=== PATIENT | female | born 1965 | race Caucasian/White ===

== ENCOUNTER 2018-09-06 10:42 | Emergency (ER) | payer OTHER ==
[2018-09-06 10:58] VITALS: BP 110/68; PULSE 86; TEMP 98.2; BMI 24.7
--- NOTE | 2018-09-06 12:25 | PDOC ---
Documentation entered by Ava Castro SCRIBE, acting as scribe for Bharath Marley MD. Bharath Marley MD: This documentation has been prepared by the Matthew chen Nirvannie, SCRIBE, under my direction and personally reviewed by me in its entirety. I confirm that the documentation accurately reflects all work, treatment, procedures, and medical decision making performed by me. History of Present Illness - General Chief Complaint: Vaginal Bleeding Stated Complaint: VAGINAL BLEEDING Time Seen by Provider: 09/06/18 11:27 History Source: Patient Exam Limitations: No Limitations - History of Present Illness Initial Comments: 09/06/18 12:20 The patient is a 52 year old female, with a significant past medical history of uterine fibroids and anxiety, who presents to the emergency department with, 1 day of vaginal bleeding and mild suprapubic discomfort. Patient describes her vaginal bleeding as scant and has only used 1 pad today. Patients LMP was 2 years ago and has not experienced any post-menopausal bleeding until today. She denies any abnormal vaginal discharge. She denies any rectal bleeding. She denies recent fevers, chills, headache or dizziness. She denies recent nausea, vomit, diarrhea or constipation. She denies recent dysuria, frequency, urgency or hematuria. She denies recent chest pain or shortness of breath. Allergies: NKDA Past History - Past Medical History Allergies/Adverse Reactions: Allergies Allergy/AdvReac Type Severity Reaction Status Date / Time No Known Allergies Allergy Verified 09/06/18 10:55 COPD: No - Immunization History Immunization Up to Date: Yes - Suicide/Smoking/Psychosocial Hx Smoking History: Never smoked Hx Alcohol Use: No Drug/Substance Use Hx: No Review of Systems - Review of Systems Able to Perform ROS?: Yes Comments:: 09/06/18 12:20 "GENERAL/CONSTITUTIONAL: No fever or chills. No weakness. HEAD, EYES, EARS, NOSE AND THROAT: No change in vision. No ear pain or discharge. No sore throat. CARDIOVASCULAR: No chest pain, no shortness of breath, no loss of consciousness RESPIRATORY: No cough, wheezing, or hemoptysis. GASTROINTESTINAL: No nausea, vomiting, diarrhea or constipation. GENITOURINARY: +Vaginal bleeding. No dysuria, frequency, or change in urination. MUSCULOSKELETAL: No joint or muscle swelling or pain. No neck or back pain. SKIN: No rash NEUROLOGIC: No vertigo, no change in strength/sensation. ENDOCRINE: No increased thirst. No abnormal weight change. HEMATOLOGIC/LYMPHATIC: No anemia, easy bleeding, or history of blood clots. ALLERGIC/IMMUNOLOGIC: No hives or skin allergy. All Other Systems: Reviewed and Negative *Physical Exam - Vital Signs Last Vital Signs Temp Pulse Resp BP Pulse Ox 98.2 F 86 16 110/68 99 09/06/18 10:55 09/06/18 10:55 09/06/18 10:55 09/06/18 10:55 09/06/18 10:55 - Physical Exam Comments: 09/06/18 12:10 GENERAL: Awake, alert, and fully oriented, in no acute distress. HEAD: No signs of trauma EYES: PERRLA, EOMI, sclera anicteric, conjunctiva clear ENT: Auricles normal inspection, hearing grossly normal, nares patent, oropharynx clear without exudates. Moist mucosa NECK: Nontender, no stepoffs, Normal ROM, supple, no lymphadenopathy, JVD, or masses LUNGS: Breath sounds equal, clear to auscultation bilaterally. No wheezes, and no crackles HEART: Regular rate and rhythm, normal S1 and S2, no murmurs, rubs or gallops ABDOMEN: Soft, nontender, normoactive bowel sounds. No guarding, no rebound. No masses EXTREMITIES: Normal range of motion, no edema. No clubbing or cyanosis. No cords, erythema, or tenderness NEUROLOGICAL: Cranial nerves II through XII intact. 5/5 strength and sensation in all extremities, Normal speech, normal gait, normal cerebellar function SKIN: Warm, Dry, normal turgor, no rashes or lesions noted. : scant blood in vault, no CMT, no cervical masses visualized, no adnexal masses or tenderness ED Treatment Course - LABORATORY CBC & Chemistry Diagram: 09/06/18 12:05 09/06/18 12:05 - RADIOLOGY Radiology Studies Ordered: Category Date Time Status TRANSVAGINAL ULTRASOUND US [US] Stat Ultrasound 09/06/18 11:54 Ordered Medical Decision Making - Medical Decision Making 09/06/18 12:08 52 F with abnormal vaginal bleeding. Benign exam in ED. Suspect fibroids vs malignancy. Pt with no symptoms of anemia. - Labs - UA - TVUS 09/06/18 13:53 Labs wnl UA with + RBCs, no infection TVUS shows enlarged fibroid uterus, likely cause of pt's bleeding Pt is well appearing, with normal vitals. Clinically stable for DC at this time. I discussed the physical exam findings, ancillary test results and final diagnoses with the patient. I answered all of the patient's questions. The patient was satisfied with the care received and felt comfortable with the discharge plan and treatment plan. The patient agrees to follow up with the primary care physician within 24-72 hours. *DC/Admit/Observation/Transfer Diagnosis at time of Disposition: Fibroid, Vaginal bleeding, Postmenopausal bleeding - Discharge Dispostion Disposition: HOME - Referrals - Patient Instructions Printed Discharge Instructions: DI for Vaginal Bleeding, DI for Uterine Fibroids Additional Instructions: Your ultrasound showed fibroids in your uterus. This is likely the cause of your bleeding. However, you must follow up with your cyber incident handler, as we cannot rule out malignancy. You may need further studies or a biopsy. If you experience worsening bleeding, pain, or any other concerning symptoms, return to the ER immediately. Otherwise, follow up with your cyber incident handler within 1 week. Call the number provided if you do not have one. Magallanes sonograma mostr fibromas en magallanes tero. Esta es probablemente la causa de magallanes sangrado. Sin embargo, debe hacer koby eneida con magallanes obstetra / gineclogo, ya que no podemos descartar koby enfermedad maligna. Es posible que necesite ms estudios o koby biopsia. Si tiene un empeoramiento del sangrado, dolor o cualquier otro sntoma preocupante, regrese a la christiane de emergencias inmediatamente. De lo contrario, maren un seguimiento con magallanes obstetra / gineclogo dentro de koby semana. Llame al nmero provisto si no tiene nick. - Post Discharge Activity - Attestations Physician Attestion: 09/06/18 13:57 I, Dr. Bharath Marley MD, attest that this document has been prepared under my direction and personally reviewed by me in its entirety. I further attest, that it accurately reflects all work, treatment, procedures and medical decision -making performed by me.
[2018-09-06 12:36] LABS: BASO % 0.7 % (0-2.0); EOS % 0.3 % (0-4.5); HEMATOCRIT 39.5 % (32.4-45.2); HEMOGLOBIN 13.1 GM/dL (10.7-15.3); LYMPH % 25.4 % (8-40); MCH 29.5 pg (25.7-33.7); MCHC 33.2 g/dl (32.0-36.0); MEAN PLT VOLUME 9.7 fl (7.5-11.1); MONO % 3.9 % (3.8-10.2); NEUT % 69.7 % (42.8-82.8); PLATELET COUNT 195 K/MM3 (134-434); RBC 4.44 M/mm3 (3.60-5.2); RDW 14.3 % (11.6-15.6); WHITE BLOOD COUNT 8.6 K/mm3 (4.0-10.0)
[2018-09-06 12:51] LABS: HCG,QUALITATIVE URINE Negative
[2018-09-06 12:55] LABS: EPI CELLS 4.7 /HPF (0-5/HPF); PH,URINE >= 9.0 (5.0-8.0); URINE APPEARANCE TURBID; URINE BACTERIA 8.5 /hpf (NEGATIVE); URINE BILIRUBIN NEGATIVE (NEGATIVE); URINE CASTS 1 /lpf (0-8); URINE COLOR DK YELLOW; URINE GLUCOSE (UA) NEGATIVE (NEGATIVE); URINE KETONE NEGATIVE (NEGATIVE); URINE LEUK ESTERASE NEGATIVE (NEGATIVE); URINE NITRITE NEGATIVE (NEGATIVE); URINE PROTEIN TRACE (NEGATIVE); URINE RBC 605 /hpf (0-4); URINE UROBILINOGEN 0.2 mg/dL (0.2-1.0); URINE WBC 2 /hpf (0-5)
[2018-09-06 13:02] LABS: ALBUMIN 4.2 g/dl (3.4-5.0); BILIRUBIN,TOTAL 0.7 mg/dL (0.2-1); CALCIUM 9.3 mg/dL (8.5-10.1); CREATININE 0.5 mg/dL (0.55-1.3); POTASSIUM 3.7 mmol/L (3.5-5.1); TOT PROT 8.2 g/dl (6.4-8.2)
== END 2018-09-06 14:05 | disposition home or self-care (01) ==
LOC: JER 10:42
DX: N95.0 Postmenopausal bleeding (principal); D25.9 Leiomyoma of uterus, unspecified
CPT/HCPCS: 36415; 76830-TC; 80053; 81003; 84703; 85025; 99282-25

== ENCOUNTER 2018-09-19 12:43 | Emergency (ER) | payer OTHER | END 2018-09-19 14:29 | disposition home or self-care (01) | LOC: JERFT 12:43 ==

== ENCOUNTER 2019-04-07 14:01 | Emergency (ER) | payer OTHER ==
[2019-04-07 14:11] VITALS: BP 141/86; PULSE 99; TEMP 98.2; BMI 28.3
--- NOTE | 2019-04-07 14:54 | PDOC ---
History of Present Illness - General Chief Complaint: Back Pain Stated Complaint: BACK PAIN Time Seen by Provider: 04/07/19 14:04 - History of Present Illness Initial Comments: 04/07/19 14:52 53-year-old female with a past medical history of asthma presents for evaluation of right-sided back pain x1 day she is had a cough for 2 weeks no systemic symptoms Past History - Past Medical History Allergies/Adverse Reactions: Allergies Allergy/AdvReac Type Severity Reaction Status Date / Time No Known Allergies Allergy Verified 09/19/18 12:46 Home Medications: Ambulatory Orders Nitrofurantoin Monohyd/M-Cryst [Macrobid -] 100 mg PO BID #14 capsule 09/19/18 Cyclobenzaprine HCl [Flexeril 10 mg] 10 mg PO HS PRN #10 tablet 04/07/19 Ibuprofen [Motrin -] 600 mg PO TID #30 tablet 04/07/19 COPD: No - Immunization History Immunization Up to Date: Yes - Psycho Social/Smoking Cessation Hx Smoking History: Never smoked Hx Alcohol Use: No Drug/Substance Use Hx: No Review of Systems - Review of Systems Musculoskeletal: Yes: Back Pain *Physical Exam - Vital Signs Last Vital Signs Temp Pulse Resp BP Pulse Ox 98.2 F 99 H 20 141/86 100 04/07/19 14:05 04/07/19 14:05 04/07/19 14:05 04/07/19 14:05 04/07/19 14:05 - Physical Exam 04/07/19 14:52 GENERAL: The patient is awake, alert, and fully oriented, in no acute distress. HEAD: Normal with no signs of trauma. EYES: sclera anicteric, conjunctiva clear. ENT: Ears normal tympanic membranes normal oropharynx clear uvula midline NECK: Normal range of motion LUNGS: Breath sounds equal, clear to auscultation bilaterally. No wheezes, and no crackles. Mild right-sided parathoracic musculature spasm and tenderness HEART: S1 and S2 without murmur, rub or gallop. ABDOMEN: Soft, nontender, normoactive bowel sounds. No guarding, no rebound. No masses. EXTREMITIES: Normal range of motion, no edema. No clubbing or cyanosis. No cords, erythema, or tenderness. NEUROLOGICAL: Cranial nerves II through XII grossly intact. Normal speech, normal gait. PSYCH: Normal mood, normal affect. SKIN: Warm, Dry, normal turgor, no rashes or lesions noted. ED Treatment Course - RADIOLOGY Radiology Studies Ordered: Category Date Time Status CHEST PA & LAT [RAD] Stat Radiology 04/07/19 14:38 Taken Medical Decision Making - Medical Decision Making 04/07/19 14:53 Thoracic strain Flexeril Motrin follow-up with primary care physician Discharge - Discharge Information Problems reviewed: Yes Clinical Impression/Diagnosis: Strain of fascia at thorax level Condition: Stable Disposition: HOME - Admission No - Follow up/Referral Referrals: Roxann Urbano [Primary Care Provider] - - Patient Discharge Instructions Additional Instructions: Please take the Motrin and Flexeril as directed. Return to the emergency room for worsening symptoms. Without fail follow-up with your primary care physician in 2 to 3 days for further evaluation and treatment options. - Post Discharge Activity
== END 2019-04-07 15:20 | disposition home or self-care (01) ==
LOC: JERFT 14:01
DX: S29.012A Strain of muscle and tendon of back wall of thorax, initial encounter (principal); X58.XXXA Exposure to other specified factors, initial encounter; Y93.89 Activity, other specified; Y92.89 Other specified places as the place of occurrence of the external cause; J45.909 Unspecified asthma, uncomplicated
CPT/HCPCS: 71046-TC-FY; 99281-25

== ENCOUNTER 2019-04-18 14:02 | Emergency (ER) | payer OTHER ==
[2019-04-18 14:15] VITALS: BP 116/89; PULSE 88; TEMP 98.6; BMI 23.0
--- NOTE | 2019-04-18 15:23 | PDOC ---
History of Present Illness - General Chief Complaint: Cold Symptoms Stated Complaint: WEAKNESS/LOSS OF APPETITE Time Seen by Provider: 04/18/19 15:22 History Source: Patient - History of Present Illness Initial Comments: 04/18/19 16:16 53-year-old female complaining of fever 3 days ago, nasal congestion. Patient was seen in this ER 10 days ago had a normal chest x-ray. Denies fever today, patient just reports that she is worried that she has TB. Denies recent travel , exposure to TB, hemoptysis. Past History - Past Medical History Allergies/Adverse Reactions: Allergies Allergy/AdvReac Type Severity Reaction Status Date / Time No Known Allergies Allergy Verified 04/18/19 14:15 Home Medications: Ambulatory Orders Nitrofurantoin Monohyd/M-Cryst [Macrobid -] 100 mg PO BID #14 capsule 09/19/18 Cyclobenzaprine HCl [Flexeril 10 mg] 10 mg PO HS PRN #10 tablet 04/07/19 Ibuprofen [Motrin -] 600 mg PO TID #30 tablet 04/07/19 COPD: No - Immunization History Immunization Up to Date: Yes - Psycho Social/Smoking Cessation Hx Smoking History: Never smoked Hx Alcohol Use: No Drug/Substance Use Hx: No Review of Systems - Review of Systems Able to Perform ROS?: Yes Is the patient limited Hungarian proficient: No Constitutional: Yes: Fever, Unintentional Wgt. Loss HEENTM: Yes: Nose Congestion Respiratory: Yes: Cough Cardiac (ROS): Yes: Symptoms Reported, See HPI, Chest Pain, Edema, Irregular Heart Rate, Lightheadedness, Palpitations, Syncope, Chest Tightness, Other ABD/GI: No: Symptoms Reported, See HPI, Abdominal Distended, Abd. Pain w/ defecation, Blood Streaked Bowels, Constipated, Diarrhea, Difficulty Swallowing , Nausea, Poor Appetite, Poor Fluid Intake, Rectal Bleeding, Vomiting, Indigestion, Abdominal cramping, Tarry Stools, Other *Physical Exam - Vital Signs Last Vital Signs Temp Pulse Resp BP Pulse Ox 98.6 F 88 18 116/89 100 04/18/19 14:13 04/18/19 14:13 04/18/19 14:13 04/18/19 14:13 04/18/19 14:13 - Physical Exam General Appearance: Yes: Appropriately Dressed HEENT: positive: Pharyngeal Erythema (with exudate) Respiratory/Chest: positive: Lungs Clear, Normal Breath Sounds Cardiovascular: positive: Regular Rhythm, Regular Rate Gastrointestinal/Abdominal: positive: Normal Bowel Sounds, Soft. negative: Tender Extremity: positive: Normal Capillary Refill, Normal Inspection, Normal Range of Motion Integumentary: positive: Normal Color, Dry, Warm Neurologic: positive: Fully Oriented, Alert, Normal Mood/Affect ED Progress Note - Progress Note Progress Note: 04/18/19 20:12 viral syndrome P: rapid strep negative pcp follow up for weight loss/ chronic complaints. Discharge - Discharge Information Problems reviewed: Yes Clinical Impression/Diagnosis: Viral syndrome Disposition: HOME - Follow up/Referral Referrals: Roxann Urbano [Primary Care Provider] - - Patient Discharge Instructions Patient Printed Discharge Instructions: How to Avoid a Cold or Flu Additional Instructions: Patient drink plenty of fluids. Give Tylenol every 4 hours as needed for fever Give ibuprofen then every 6 hours as needed for fever Follow-up with your doctor as soon as possible. Return to the emergency room if symptoms worsen. - Post Discharge Activity Work/Back to School Note: Back to Work
== END 2019-04-18 16:30 | disposition home or self-care (01) ==
LOC: JERFT 14:02
DX: B34.9 Viral infection, unspecified (principal); R63.4 Abnormal weight loss; Z68.23 Body mass index [BMI] 23.0-23.9, adult
CPT/HCPCS: 87070; 87880; 99281-25

== ENCOUNTER 2019-05-25 13:55 | Emergency (ER) | payer OTHER ==
[2019-05-25 14:10] VITALS: BP 136/75; PULSE 96; TEMP 98.2; BMI 24.1
--- NOTE | 2019-05-25 14:30 | PDOC ---
History of Present Illness - General Chief Complaint: Cold Symptoms Stated Complaint: COLD SYMPTOMS Time Seen by Provider: 05/25/19 14:13 History Source: Patient - History of Present Illness Timing/Duration: reports: other Associated Symptoms: reports: cough. denies: fever/chills, shortness of breath Past History - Past Medical History Allergies/Adverse Reactions: Allergies Allergy/AdvReac Type Severity Reaction Status Date / Time No Known Allergies Allergy Verified 04/18/19 14:15 Home Medications: Ambulatory Orders NK [No Known Home Medication] 05/25/19 Asthma: Yes COPD: No - Immunization History Immunization Up to Date: Yes - Psycho Social/Smoking Cessation Hx Smoking History: Never smoked Hx Alcohol Use: No Drug/Substance Use Hx: No Review of Systems - Review of Systems Constitutional: No: Chills, Fever Respiratory: Yes: Cough. No: Shortness of Breath, Wheezing Cardiac (ROS): No: Chest Pain *Physical Exam - Vital Signs Last Vital Signs Temp Pulse Resp BP Pulse Ox 98.2 F 96 H 19 136/75 100 05/25/19 14:05 05/25/19 14:05 05/25/19 14:05 05/25/19 14:05 05/25/19 14:05 - Physical Exam General Appearance: Yes: Appropriately Dressed. No: Apparent Distress HEENT: positive: Normal ENT Inspection, Normal Voice, TMs Normal, Pharynx Normal. negative: Scleral Icterus (R), Scleral Icterus (L) Neck: positive: Supple. negative: Lymphadenopathy (R), Lymphadenopathy (L) Respiratory/Chest: positive: Lungs Clear, Normal Breath Sounds. negative: Respiratory Distress Cardiovascular: positive: Regular Rate, S1, S2 Integumentary: positive: Dry, Warm Neurologic: positive: Fully Oriented, Alert, Normal Mood/Affect Medical Decision Making - Medical Decision Making 05/25/19 14:29 53-year-old female, no significant history, here with productive cough with congestion for 3 days. No shortness of breath, chest pain, fever, chills or ming dy aches. Not taking anything for her symptoms see exam M/l viral URI Exam wnl Dc w/ supportive tx Discharge - Discharge Information Problems reviewed: Yes Clinical Impression/Diagnosis: URI (upper respiratory infection) Qualifiers: URI type: unspecified viral URI Qualified Code(s): J06.9 - Acute upper respiratory infection, unspecified Condition: Good Disposition: HOME - Follow up/Referral - Patient Discharge Instructions Patient Printed Discharge Instructions: DI for Viral Upper Respiratory Infection -- Adult Print Language: OMANI - Post Discharge Activity
== END 2019-05-25 15:00 | disposition home or self-care (01) ==
LOC: JERFT 13:55
DX: J06.9 Acute upper respiratory infection, unspecified (principal); B97.89 Other viral agents as the cause of diseases classified elsewhere; J45.909 Unspecified asthma, uncomplicated
CPT/HCPCS: 99281-25

== ENCOUNTER 2019-06-01 20:31 | Emergency (ER) | payer OTHER ==
[2019-06-01 20:44] VITALS: BP 149/70; PULSE 85; TEMP 98.2; BMI 24.1
[2019-06-01] MEDS ORDERED: DEXAMETHASONE LIQUID 0.5 MG/5 ML PO ONE (21:52)
[2019-06-01] MEDS ORDERED: AMOX TR/POT CLAV 875MG/125MG TABLETS (FP) PO ONE (21:52)
[2019-06-01] MEDS ORDERED: AMOX TR/POT CLAV 875MG/125MG TABLETS (FP) ONE (22:00)
[2019-06-01] MEDS ORDERED: DEXAMETHASONE SOD PHOSPHATE 10 MG/1 ML VIAL ONE ×2 (22:00→22:04)
--- NOTE | 2019-06-01 22:02 | PDOC ---
History of Present Illness - General Chief Complaint: Sore Throat Stated Complaint: SORE THROAT Time Seen by Provider: 06/01/19 21:34 History Source: Patient Exam Limitations: Clinical Condition - History of Present Illness Initial Comments: 06/01/19 22:02 Patient with history of asthma presented with complaint of 5-day history of intermittent cough, sore throat, painful to swallow, tactile fever and nasal congestion. Patient was seen a week ago here for URI symptoms and discharged home on conservative management to take [id number] meds but reports symptoms not improved. Patient has not followed up with PCP. Denies any other symptoms Is this a multiple visit Asthma Patient?: No Timing/Duration: other (5 days) Past History - Past Medical History Allergies/Adverse Reactions: Allergies Allergy/AdvReac Type Severity Reaction Status Date / Time No Known Allergies Allergy Verified 06/01/19 20:44 Home Medications: Ambulatory Orders Amoxicillin/Potassium Clav [Augmentin 875-125 Tablet] 1 each PO BID 7 Days #14 tablet 06/01/19 Ipratropium [place] 2 spray NS BID PRN 5 Days #1 spray 06/01/19 Methylprednisolone [Medrol Dose [place]] 4 mg PO ASDIR #21 tablet 06/01/19 Asthma: Yes COPD: No - Immunization History Immunization Up to Date: Yes - Psycho Social/Smoking Cessation Hx Smoking History: Never smoked Hx Alcohol Use: No Drug/Substance Use Hx: No Review of Systems - Review of Systems Able to Perform ROS?: Yes Is the patient limited Kinyarwanda proficient: No Constitutional: Yes: Chills, Malaise. No: Fever HEENTM: Yes: Symptoms Reported, See HPI, Nose Congestion, Throat Pain. No: Eye Pain, Blurred Vision, Tearing, Recent change in vision, Double Vision, Cataracts , Ear Pain, Ocular Prothesis, Ear Discharge, Nose Pain, Tinnitus, Nose Bleeding , Hearing Loss, Throat Swelling, Mouth Pain, Dental Problems, Difficulty Swallowing, Mouth Swelling, Other Respiratory: Yes: Symptoms reported, See HPI, Cough. No: Orthopnea, Shortness of Breath, SOB with Exertion, SOB at Rest, Stridor, Wheezing, Productive cough, Hemoptysis, Other Cardiac (ROS): No: Symptoms Reported, See HPI, Chest Pain, Edema, Irregular Heart Rate, Lightheadedness, Palpitations, Syncope, Chest Tightness, Other ABD/GI: Yes: Symptoms Reported, See HPI. No: Nausea, Vomiting Musculoskeletal: No: Symptoms Reported Integumentary: No: Symptoms Reported All Other Systems: Reviewed and Negative *Physical Exam - Vital Signs Last Vital Signs Temp Pulse Resp BP Pulse Ox 98.2 F 85 18 149/70 100 06/01/19 20:42 06/01/19 20:42 06/01/19 20:42 06/01/19 20:42 06/01/19 20:42 - Physical Exam 06/01/19 22:05 GENERAL: Well developed, well nourished. Awake and alert. No acute distress. HEENT: Mild pharyngeal erythema. No exudates. Normocephalic, atraumatic. PERRLA, EOMI. No conjunctival pallor. Sclera are non-icteric. Moist mucous membranes. NECK: Supple. Full ROM. CARDIOVASCULAR: Regular rate and rhythm. No murmurs, rubs, or gallops. Distal pulses are 2+ and symmetric. PULMONARY: No evidence of respiratory distress. Lungs clear to auscultation bilaterally. No wheezing, rales or rhonchi. ABDOMINAL: Soft. Non-tender. Non-distended. No rebound or guarding. No organomegaly. Normoactive bowel sounds. MUSCULOSKELETAL Normal range of motion at all joints. SKIN: Warm and dry. Normal capillary refill. No rashes. No cyanosis NEUROLOGICAL: Alert, awake, appropriate. Gait is normal without ataxia. PSYCHIATRIC: Cooperative. Good eye contact. Appropriate mood General Appearance: Yes: Nourished, Appropriately Dressed. No: Apparent Distress Medical Decision Making - Medical Decision Making 06/01/19 22:03 Patient with history of asthma presented with complaint of 5-day history of intermittent cough, sore throat, painful to swallow, tactile fever and nasal congestion. Patient was seen a week ago here for URI symptoms and discharged home on conservative management to take [id number] meds but reports symptoms not improved. Patient has not followed up with PCP. Denies any other symptoms Exam significant for mild pharyngeal erythema otherwise unremarkable exam. Lungs clear to auscultation bilateral. Symptoms likely viral pharyngitis with URI versus strep. Patient will be treated on Augmentin antibiotics twice daily for a week due to persistent throat pain and Medrol [place] for congestion and URI with advised to increase fluid intake with PCP follow-up Discharge - Discharge Information Problems reviewed: Yes Clinical Impression/Diagnosis: URI (upper respiratory infection) Qualifiers: URI type: unspecified URI Qualified Code(s): J06.9 - Acute upper respiratory infection, unspecified Pharyngitis Qualifiers: Pharyngitis/tonsillitis etiology: unspecified etiology Qualified Code(s): J02.9 - Acute pharyngitis, unspecified Condition: Stable Disposition: HOME - Admission No - Additional Discharge Information Prescriptions: Amoxicillin/Potassium Clav [Augmentin 875-125 Tablet] 1 each PO BID 7 Days #14 tablet Ipratropium [place] 2 spray NS BID PRN 5 Days #1 spray PRN Reason: nasal congestion' Methylprednisolone [Medrol Dose [place]] 4 mg PO ASDIR #21 tablet - Follow up/Referral Referrals: Roxann Urbano [Primary Care Provider] - - Patient Discharge Instructions Patient Printed Discharge Instructions: DI for Pharyngitis/Tonsillopharyngitis -- Adult Additional Instructions: Take medications as prescribed. Increase fluid intake. Follow-up with PCP as needed - Post Discharge Activity
== END 2019-06-01 22:05 | disposition home or self-care (01) ==
LOC: JERFT 20:31
DX: J06.9 Acute upper respiratory infection, unspecified (principal); J02.9 Acute pharyngitis, unspecified; Z87.09 Personal history of other diseases of the respiratory system
CPT/HCPCS: 99283-25

== ENCOUNTER 2021-12-21 13:33 | Emergency (ER) | payer OTHER ==
[2021-12-21 13:52] VITALS: BP 144/83; PULSE 81; RESP 17; TEMP 98.4; BMI 23.7
[2021-12-21] MEDS ORDERED: IBUPROFEN 600 MG TABLET (FP) PO ONE ×2 (15:36→15:40)
[2021-12-21] MEDS ORDERED: ACETAMINOPHEN 500 MG TABLET (FP) PO ONE (15:36)
[2021-12-21] MEDS ORDERED: ACETAMINOPHEN 500 MG TABLET (FP) ONE (15:41)
== END 2021-12-21 16:24 | disposition home or self-care (01) ==
LOC: JERFT 13:33 → JER 13:33 → JERFT 16:24
DX: R07.82 Intercostal pain (principal)
CPT/HCPCS: 71046-TC-FY; 71111-TC-FY; 99284-25

== ENCOUNTER 2022-03-18 14:48 | Emergency (ER) | payer OTHER ==
[2022-03-18 14:57] VITALS: BP 138/70; PULSE 96; RESP 16; TEMP 98.3; BMI 22.8
[2022-03-18 21:26] LABS: URINE APPEARANCE CLEAR; URINE BILIRUBIN NEGATIVE (NEGATIVE); URINE COLOR YELLOW; URINE GLUCOSE (UA) NEGATIVE (NEGATIVE); URINE KETONE NEGATIVE (NEGATIVE); URINE LEUK ESTERASE NEGATIVE (NEGATIVE); URINE NITRITE NEGATIVE (NEGATIVE); URINE PROTEIN NEGATIVE (NEGATIVE); URINE UROBILINOGEN 0.2 mg/dL (0.2-1.0)
== END 2022-03-18 23:41 | disposition home or self-care (01) ==
LOC: JER 14:48
DX: M76.01 Gluteal tendinitis, right hip (principal); R10.813 Right lower quadrant abdominal tenderness
CPT/HCPCS: 73502-TC-RT-FY; 81003; 93971-TC; 99285-25

== ENCOUNTER 2022-05-19 17:23 | Emergency (ER) | payer OTHER ==
[2022-05-19 17:33] VITALS: BP 142/66; PULSE 85; RESP 18; TEMP 98.1; BMI 22.8
[2022-05-19] MEDS ORDERED: KETOROLAC TROMETHAMINE 30 MG/1 ML VIAL IM ONE (19:18)
[2022-05-19] MEDS ORDERED: KETOROLAC TROMETHAMINE 30 MG/1 ML VIAL ONE (19:24)
== END 2022-05-19 20:23 | disposition home or self-care (01) ==
LOC: JER 17:23 → JERFT 17:23
PROC: 3E0233Z Introduction of Anti-inflammatory into Muscle, Percutaneous Approach (ICD-10-PCS; principal; 2022-05-19)
DX: M75.22 Bicipital tendinitis, left shoulder (principal)
CPT/HCPCS: 73030-TC-LT-FY; 96372; 99284-25